=== PATIENT | male | born 1955 | race Caucasian/White ===

== ENCOUNTER → 2016-08-20 | Outpatient (CLI) | payer BC ==
[~2016-08-20] MED LIST: ACHD5005 PO; ALPR0.5T7 PO; CPR500T PO; CYCL10TA9 PO; ESCI20TA2 PO; GABA-488 PO; S-AD400T3 PO; TRAM50TA2 PO; ZOLP5TAB PO
--- OUTSIDE RECORDS SUMMARY | 2016-08-20 16:02 | XMS REPORT | Continuity of Care Document ---
Author Author [facility] Organization [facility] Address Unknown Phone Unavailable Care Team Providers Care Actuary Manager Name Role Phone ANNY POOL DO PCP Insurance Providers Payer Name Policy Number Subscriber Name Relationship [facility] [id number] Kelly Vance 18 Self / Same As Patient Advance Directives Directive Response Recorded Date/Time Advance Directives No 12/27/15 9:52am Health Care Power of Lesson Instructor No 12/27/15 9:52am Organ Donor Yes 12/27/15 9:52am Resuscitation Status Full Code 12/27/15 9:52am Problems No problem information available. Medications No known medications. Social History Social History Problem Response Recorded Date/Time Alcohol Use Occasionally Uses 12/27/2015 9:52am Recreational Drug Use No 12/27/2015 9:52am Recent Foreign Travel No 09/06/2012 1:35pm Recent Infectious Disease Exposure No 09/06/2012 1:35pm Hospitalization with Isolation Denies 09/07/2012 2:38pm Sexually Transmitted Disease No 12/27/2015 9:52am HIV/AIDS No 12/27/2015 9:52am Smoking Status Never a Smoker 12/27/2015 9:52am Query Response Start Date Stop Date Smoking Status Never a Smoker Hospital Discharge Instructions No hospital discharge instructions. Plan of Care Discharge Date 12/27/15 10:00am Prescriptions See Medication Section Functional Status No functional status results. Allergies, Adverse Reactions, Alerts No known allergies. Immunizations No immunization records. Vital Signs Acute Vital Signs Vital Response Date/Time Temperature (Fahrenheit) 98.4 degrees F (97.6 - 99.5) 12/06/2015 6:00am Temperature (Calculated Celsius) 36.07702 degrees C (36.4 - 37.5) 12/06/2015 6:00am Temperature Source Temporal 12/06/2015 6:00am Pulse Rate (adult) 85 bpm (60 - 90) 12/06/2015 6:00am Respiratory Rate 20 bpm (12 - 24) 12/06/2015 6:00am O2 Sat by Pulse Oximetry 97 % (88 - 100) 12/06/2015 6:00am Blood Pressure 132/85 mm Hg 12/06/2015 6:00am Blood Pressure Mean 101 mm Hg 12/06/2015 6:00am Pain Pain Intensity 8 12/06/2015 6:00am Height (Feet) 6 feet 12/27/2015 9:52am Height (Inches) 3.00 inches 12/27/2015 9:52am Height (Calculated Centimeters) 190.441116 cm 12/27/2015 9:52am Weight (Pounds) 247 pounds 12/27/2015 9:52am Weight (Ounces) 0.5 oz 12/27/2015 9:52am Weight (Calculated Grams) 147046.491 gm 12/27/2015 9:52am Weight (Calculated Kilograms) 112.207186 kilograms 12/27/2015 9:52am Calculated BMI 28.54 12/27/2015 9:52am Results Laboratory Results Test Name Result Units Flags Reference Collection Date/Time Result Date/ Time Comments White Blood Count 6.2 10^3/uL 4.3-11.0 12/06/2015 5:32am 12/06/2015 6: 40am Red Blood Count 4.52 10^6/uL 4.35-5.85 12/06/2015 5:32am 12/06/2015 6: 40am Hemoglobin 14.2 G/DL 13.3-17.7 12/06/2015 5:32am 12/06/2015 6:40am Hematocrit 41 % 40-54 12/06/2015 5:32am 12/06/2015 6:40am Mean Corpuscular Volume 90 FL 80-99 12/06/2015 5:12/06/2015 6: 40am Mean Corpuscular Hemoglobin 31 PG 25-34 12/06/2015 5:12/06/2015 6: 40am Mean Corpuscular Hemoglobin Concent 35 G/DL 32-36 12/06/2015 5: 6:40am Red Cell Distribution Width 13.7 % 10.0-14.5 12/06/2015 5:2015 6:40am Platelet Count 131 10^3/uL 130-400 12/06/2015 5:12/06/2015 6:40am Mean Platelet Volume 11.1 FL H 7.4-10.4 12/06/2015 5:12/06/2015 6: 40am Neutrophils (%) (Auto) 51 % 42-75 12/06/2015 5:12/06/2015 6:40am Lymphocytes (%) (Auto) 37 % 12-44 12/06/2015 5:12/06/2015 6:40am Monocytes (%) (Auto) 9 % 0-12 12/06/2015 5:12/06/2015 6:40am Eosinophils (%) (Auto) 2 % 0-10 12/06/2015 5:12/06/2015 6:40am Basophils (%) (Auto) 1 % 0-10 12/06/2015 5:12/06/2015 6:40am Neutrophils # (Auto) 3.2 X 10^3 1.8-7.8 12/06/2015 5:12/06/2015 6: 40am Lymphocytes # (Auto) 2.3 X 10^3 1.0-4.0 12/06/2015 5:12/06/2015 6: 40am Monocytes # (Auto) 0.5 X 10^3 0.0-1.0 12/06/2015 5:12/06/2015 6: 40am Eosinophils # (Auto) 0.2 10^3/uL 0.0-0.3 12/06/2015 5:12/06/2015 6 :40am Basophils # (Auto) 0.1 10^3/uL 0.0-0.1 12/06/2015 5:2016 6: 40am Neutrophils % (Manual) 86 % 12/04/2015 8:50pm 12/04/2015 9:26pm Band Neutrophils 4 % 12/04/2015 8:50pm 12/04/2015 9:26pm Lymphocytes % (Manual) 5 % 12/04/2015 8:50pm 12/04/2015 9:26pm Monocytes % (Manual) 5 % 12/04/2015 8:50pm 12/04/2015 9:26pm Eosinophils % (Manual) 0 % 12/04/2015 8:50pm 12/04/2015 9:26pm Basophils % (Manual) 0 % 12/04/2015 8:50pm 12/04/2015 9:26pm Blood Morphology Comment NORMAL 12/04/2015 8:50pm 12/04/2015 9: 26pm Urine Color LEONOR * 12/04/2015 8:50pm 12/04/2015 9:23pm Urine Clarity SLIGHTLY CLOUDY 12/04/2015 8:50pm 12/04/2015 9:23pm Urine pH 5 5-9 12/04/2015 8:50pm 12/04/2015 9:23pm Urine Specific Balko 1.025 * 1.016-1.022 12/04/2015 8:50pm 2015 9:23pm Urine Protein 2+ * NEGATIVE 12/04/2015 8:50pm 12/04/2015 9:23pm Urine Glucose (UA) NEGATIVE NEGATIVE 12/04/2015 8:50pm 12/04/2015 9: 23pm Urine RBC (Auto) 4+ * NEGATIVE 12/04/2015 8:50pm 12/04/2015 9:23pm Urine Ketones NEGATIVE NEGATIVE 12/04/2015 8:50pm 12/04/2015 9:23pm Urine Nitrite NEGATIVE NEGATIVE 12/04/2015 8:50pm 12/04/2015 9:23pm Urine Bilirubin NEGATIVE NEGATIVE 12/04/2015 8:50pm 12/04/2015 9: 23pm Urine Urobilinogen 1 MG/DL NORMAL 12/04/2015 8:50pm 12/04/2015 9:23pm Urine Leukocyte Esterase 1+ * NEGATIVE 12/04/2015 8:50pm 12/04/2015 9: 23pm Urine RBC 5-10 /HPF * 12/04/2015 8:50pm 12/04/2015 9:23pm Urine WBC 0-2 /HPF 12/04/2015 8:50pm 12/04/2015 9:23pm Urine Bacteria NONE /HPF 12/04/2015 8:50pm 12/04/2015 9:23pm Urine Crystals NONE /LPF 12/04/2015 8:50pm 12/04/2015 9:23pm Urine Casts PRESENT /LPF 12/04/2015 8:50pm 12/04/2015 9:23pm Urine Hyaline Casts >50 /[facility] * 12/04/2015 8:50pm 12/04/2015 9:23pm Urine Mucus NEGATIVE /[facility] 12/04/2015 8:50pm 12/04/2015 9:23pm Urine Culture Indicated NO 12/04/2015 8:50pm 12/04/2015 9:23pm Sodium Level 140 MMOL/L 135-145 12/06/2015 5:32am 12/06/2015 6:21am Potassium Level 4.4 MMOL/L 3.6-5.0 12/06/2015 5:32am 12/06/2015 6:21am Chloride Level 114 MMOL/L H 98-107 12/06/2015 5:32am 12/06/2015 6:21am Carbon Dioxide Level 20 MMOL/L L 21-32 12/06/2015 5:32am 12/06/2015 6: 21am Anion Gap 6 MMOL/L 5-14 12/06/2015 5:32am 12/06/2015 6:21am Blood Urea Nitrogen 12 MG/DL 7-18 12/06/2015 5:32am 12/06/2015 6:21am Creatinine 0.91 MG/DL 0.60-1.30 12/06/2015 5:32am 12/06/2015 6:21am BUN/Creatinine Ratio 13 12/06/2015 5:32am 12/06/2015 6:21am Estimat Glomerular Filtration Rate > 60 12/06/2015 5:32am 2015 6:21am GFR INTERPRETIVE DATA UNITS FOR ESTIMATED GFR (eGFR): mL/min/1.73 M2 REFERENCE RANGE FOR ESTIMATED GFR (eGFR) eGFR NORMAL eGFR >60 MODERATELY DECREASED eGFR 30-59 SEVERLY DECREASED eGFR 15-29 KIDNEY FAILURE <15 (OR DIALYSIS) Glucose Level 90 MG/DL 70-105 12/06/2015 5:32am 12/06/2015 6:21am Calcium Level 7.8 MG/DL L 8.5-10.1 12/06/2015 5:32am 12/06/2015 6:21am Total Bilirubin 0.6 MG/DL 0.1-1.0 12/06/2015 5:32am 12/06/2015 6:21am Alkaline Phosphatase 56 U/L 40-136 12/06/2015 5:32am 12/06/2015 6:21am Aspartate Amino Transf (AST/SGOT) 36 U/L H 5-34 12/06/2015 5:32am 2015 6:21am Alanine Aminotransferase (ALT/SGPT) 24 U/L 0-55 12/06/2015 5:32am 12/05 6:21am Total Creatine Kinase 827 U/L H 30-200 12/06/2015 5:32am 12/06/2015 6: 21am Total Protein 5.6 G/DL L 6.4-8.2 12/06/2015 5:32am 12/06/2015 6:21am Albumin 3.4 G/DL 3.2-4.5 12/06/2015 5:32am 12/06/2015 6:21am Procedures No known history of procedures. Encounters Encounter Location Arrival/Admit Date Discharge/Depart Date Attending Provider Departed Clinic [facility] 12/27/15 5:34am 12/27/15 10: 00am JAYDON LUCREO MD Discharged Inpatient [facility] 12/04/15 10:45pm 9:32am ANNY POOL DO
--- NOTE | 2016-08-20 16:28 | Diagnostic Imaging Report ---
INDICATION: Right leg swelling. Right leg venous Doppler study was performed in the routine fashion with color flow Doppler and waveform analysis. FINDINGS: The right common femoral vein, superficial femoral vein, popliteal vein and visualized portion of the tibial veins show normal compressibility and venous flow patterns. There is normal augmentation. IMPRESSION: No evidence of deep vein thrombosis of the major veins of the right leg. Dictated by: Dictated on workstation # [id number]
== END ==
LOC: RAD 15:58
PROVIDERS: ATTEND Nurse Practitioner
DX: R22.41 Localized swelling, mass and lump, right lower limb (principal); M79.604 Pain in right leg

== ENCOUNTER 2018-08-13 09:12 | Emergency (ER) | payer BC ==
[~2018-08-13] VITALS: Ht 185.4 cm; Wt 117.9 kg
--- OUTSIDE RECORDS SUMMARY | 2018-08-13 09:17 | XMS REPORT | Continuity of Care Document ---
Author Author [facility] Organization [facility] Address Unknown Phone Unavailable Allergies Active Description Code Type Severity Reaction Onset Reported/Identified Relationship to Patient Clinical Status Yes No Known Drug Allergies [id number] Drug Allergy Unknown N/A 12/27/2015 Medications There is no data. Problems Date Dx Coded Attending Type Code Diagnosis Diagnosed By 03/25/2012 Ot 592.1 CALCULUS OF URETER 03/25/2012 Ot 789.09 ABDOMINAL PAIN, OTHER SPECIFIED SITE 09/07/2012 Ot 721.1 CERV SPONDYL W MYELOPATH 11/25/2012 FITO RENE Ot 787.20 DYSPHAGIA, UNSPECIFIED 11/25/2012 FITO RENE Ot V45.89 POSTSURGICAL STATES NEC 11/25/2012 FITO RENE Ot V57.3 CARE INVOLVING SPEECH-LANGUAGE THERAPY 12/05/2015 ORENDER DO, ANNY S Ot L55.0 SUNBURN OF FIRST DEGREE 12/05/2015 ORENDER DO, ANNY S Ot M62.82 RHABDOMYOLYSIS 12/05/2015 ORENDER DO, ANNY S Ot N17.9 ACUTE KIDNEY FAILURE, UNSPECIFIED 12/06/2015 ORENDER DO, ANNY S Ot L55.0 SUNBURN OF FIRST DEGREE 12/06/2015 ORENDER DO, ANNY S Ot M62.82 RHABDOMYOLYSIS 12/06/2015 ORENDER DO, ANNY S Ot N17.9 ACUTE KIDNEY FAILURE, UNSPECIFIED 12/27/2015 JAZMINE BUENROSTRO, JAYDON Salazar Ot L98.9 DISORDER OF THE SKIN AND SUBCUTANEOUS TI 12/27/2015 JAZMINE BUENROSTRO, JAYDON Salazar Ot Z01.818 ENCOUNTER FOR OTHER PREPROCEDURAL EXAMIN 12/27/2015 JAZMINE BUENROSTRO, JAYDON Salazar Ot Z12.11 ENCOUNTER FOR SCREENING FOR MALIGNANT NE 12/28/2015 JAZMINE BUENROSTRO, JAYDON Salazar Ot L98.9 DISORDER OF THE SKIN AND SUBCUTANEOUS TI 12/28/2015 JAZMINE BUENROSTRO, JAYDON Salazar Ot Z01.818 ENCOUNTER FOR OTHER PREPROCEDURAL EXAMIN 12/28/2015 JAZMINE BUENROSTRO, JAYDON Salazar Ot Z12.11 ENCOUNTER FOR SCREENING FOR MALIGNANT NE 12/31/2015 Ot 723.0 CERVICAL SPINAL STENOSIS 12/31/2015 Ot V72.63 PRE- PROCEDURAL LABORATORY EXAMINATION 12/31/2015 Ot V74.8 SCREEN- BACTERIAL DIS NEC 12/31/2015 Ot 733.00 OSTEOPOROSIS NOS 12/31/2015 ROSANA RAGSDALE MD Ot 787.20 DYSPHAGIA, UNSPECIFIED 12/31/2015 JAZMINE BUENROSTRO, JAYDON Salazar Ot K63.5 POLYP OF COLON 12/31/2015 JAZMINE BUENROSTRO, JAYDON Salazar Ot L82.1 OTHER SEBORRHEIC KERATOSIS 12/31/2015 JAZMINE BUENROSTRO, JAYDON Salazar Ot Z11.2 ENCOUNTER FOR SCREENING FOR OTHER BACTER 12/31/2015 JAZMINE BUENROSTRO, JAYDON Salazar Ot Z12.11 ENCOUNTER FOR SCREENING FOR MALIGNANT NE 01/03/2016 JAZMINE BUENROSTRO, JAYDON Salazar Ot K63.5 POLYP OF COLON 01/03/2016 JAZMINE BUENROSTRO, JAYDON Salazar Ot L82.1 OTHER SEBORRHEIC KERATOSIS 01/03/2016 JAZMINE BUENROSTRO, JAYDON Salazar Ot Z11.2 ENCOUNTER FOR SCREENING FOR OTHER BACTER 01/03/2016 JAZMINE BUENROSTRO, JAYDON Salazar Ot Z12.11 ENCOUNTER FOR SCREENING FOR MALIGNANT NE 08/20/2016 Ot 723.0 CERVICAL SPINAL STENOSIS 08/20/2016 Ot V72.63 PRE- PROCEDURAL LABORATORY EXAMINATION 08/20/2016 Ot V74.8 SCREEN- BACTERIAL DIS NEC 08/20/2016 Ot 733.00 OSTEOPOROSIS NOS 08/20/2016 ROSANA RAGSDALE MD Ot 787.20 DYSPHAGIA, UNSPECIFIED 08/21/2016 COREY SEGURA APRN Ot M79.604 PAIN IN RIGHT LEG 08/21/2016 COREY SEGURA APRN Ot R22.41 LOCALIZED SWELLING, MASS AND LUMP, RIGHT 09/04/2016 COREY SEGURA APRN Ot M79.604 PAIN IN RIGHT LEG 09/04/2016 COREY SEGURA APRN Ot R22.41 LOCALIZED SWELLING, MASS AND LUMP, RIGHT Procedures Code Description Performed By Performed On 77.79 EXCISE BONE FOR GFT NEC 09/06/2012 80.99 EXCISION OF JOINT NEC 09/06/2012 81.02 OTH CERVICAL FUSION OF ANTERIOR COLUMN, 09/06/2012 81.63 FUSION/REFUS OF 4-8 VERTEBRAE 09/06/2012 84.51 INSERTION OF INTERBODY SPINAL FUSION DEV 09/06/2012 Results There is no data. Encounters ACCT No. Visit Date/Time Discharge Status Pt. Type Provider Facility Loc./Unit Complaint [id number] 08/20/2016 15:58:00 08/20/2016 23:59:59 CLS Outpatient COREY SEGURA APRN [facility] RAD RT LEG SWELLING AND PAIN [id number] 12/31/2015 12:05:00 12/31/2015 17:25:00 DIS Outpatient JAYDON LUCERO MD [facility] SDC LESIONS X2; SCREENING [id number] 12/27/2015 05:34:00 12/27/2015 10:00:00 DIS Outpatient JAYDON LUCERO MD [facility] PREOP LESIONS/SCREENING [id number] 12/04/2015 22:45:00 12/06/2015 09:32:00 DIS Inpatient ANNY STEIN DO [facility] 4TH RHABDOMYOLYSIS,ACUTE RENAL FAILURE [id number] 11/25/2012 09:49:00 11/25/2012 23:59:59 CLS Outpatient ROSANA RAGSDALE MD [facility] RAD DYSPHAGIA [id number] 11/09/2012 14:32:00 11/25/2012 13:01:00 DIS Outpatient FITO RENE [facility] REHAB DYSPHAGIA [id number] 08/13/2018 09:13:00 ACT Emergency SARAHY ABAD MD [facility] ER TRAUMA [id number] 09/17/2012 08:42:00 Document Registration [id number] 09/06/2012 07:45:00 Document Registration [id number] 09/02/2012 10:37:00 Document Registration [id number] 03/25/2012 01:17:00 Document Registration 12/20/18 06/01/2018 12:06:33 06/01/2018 23:59:59 CLS Outpatient Anny Stein
[2018-08-13 09:30] LABS: HEMOGLOBIN 15.8 G/DL (13.3-17.7); MEAN PLATELET VOLUME 10.3 FL (7.4-10.4); RED CELL DISTRIBUTION WIDTH 12.9 % (10.0-14.5); WHITE BLOOD COUNT 5.8 10^3/uL (4.3-11.0)
[2018-08-13] MEDS ORDERED: NS 100 ML (IVPB) BAG IV ONE (09:30)
[2018-08-13] MEDS ORDERED: RECEIVED CONTRAST (Hold Metformin) IV SCH (09:30)
[2018-08-13] MEDS ORDERED: IOHEXOL 350 MG/ML 100 ML (OMNIPAQUE 350) VIAL IV ONE (09:30)
[2018-08-13] MEDS ORDERED: ALPR0.5T7 (09:34)
--- NOTE | 2018-08-13 09:34 | ED Trauma-Multisystem ---
General Chief Complaint: Trauma EMS/Air Arrival Activat Stated Complaint: TRAUMA Nursing Triage Note: 0908 - SEE MARBIN FLOW SHEET. History of Present Illness Date Seen by Provider: Aug 13, 2018 Time Seen by Provider: 09:25 Initial Comments The patient is a 62-year-old white male who was brought by ambulance. He had been descending a ladder and the ladder collapsed under him. He rode the ladder down and landed on his back and struck the back of his head. He noted that there has been some bleeding there he had no loss of consciousness. He is alert and oriented and making small jokes. He is in a cervical collar. He reports no pain other than the occipital area of the head. Occurred: Just Prior to Arrival Pain/Injury Location: Head Method of Injury: Fall Associated Symptoms (Fall): Denies Symptoms Allergies and Home Medications Allergies Coded Allergies: No Known Drug Allergies (Unverified , 12/27/15) Home Medications Tramadol HCl 50 Mg Tablet, 50 MG PO Q12H PRN for PAIN Prescribed by: JAYDON LUCERO on 12/31/15 1532 Patient Home Medication List Home Medication List Reviewed: Yes Review of Systems Review of Systems Constitutional: see HPI Eyes: No Symptoms Reported Ears: No Symptoms Reported Nose: No Symptoms Reported Mouth: No Symptoms Reported Throat: No Symptoms to Report Respiratory: no symptoms reported Cardiovascular: No Symptoms Reported Gastrointestinal: no symptoms reported Musculoskeletal: no symptoms reported Skin: no symptoms reported Psychiatric/Neurological: No Symptoms Reported Past Acfzmto-Medgkn-Trrlil Hx Patient Social History Type Used: Cigarettes Former Smoker, Quit: Jun 22, 1995 Recent Foreign Travel: No Contact w/Someone Who Travel: No Recent Infectious Disease Expo: No Past Medical History Orthopedic Reproductive Disorders: No Sexually Transmitted Disease: No HIV/AIDS: No Kidney Stones Arthritis Tinnitis Loss of Vision: Bilateral Hearing Impairment: Denies Anxiety Adverse Reaction/Blood Tranf: No (N/A) Physical Exam Height, Weight, BMI Height: 6'1.00" Weight: 260lbs. 0.5oz. 117.947509lt; 28.12 BMI Method:Stated General Appearance: Mild Distress Head: Other (occipital hematoma on the left with blood in scalp hair) Eyes: Bilateral Eye Normal Inspection Ears, Nose, Throat: Hearing Grossly Normal Neck: Other (cervical collar) Cardiovascular: Regular Rate, Rhythm, No Edema, No Gallop, No JVD, No Murmur, Normal Peripheral Pulses Respiratory: Chest Non Tender, Lungs Clear, Normal Breath Sounds, No Accessory Muscle Use, No Respiratory Distress Extremity: Other (there was a scrape over the dorsum of the right foot consistent with his description of hanging up on a ladder rung) Neurologic/Psychiatric: Alert, Oriented x3, No Motor/Sensory Deficits, Normal Mood/Affect, occupational therapy supervisor II-XII Norm as Tested Lymphatic: No Adenopathy The patient was rolled to his left side and palpation performed along the vertebral column. No pain was elicited. Hatch Coma Score Best Eye Response (Marcia): (4) Open Spontaneously Best Verbal Response (Marcia): (5) Oriented Best Motor Response (Hatch): (6) Obeys Commands Marcia Total: 15 Progress/Results/Core Measures Results/Orders Lab Results Laboratory Tests Test 08/13/18 09:16 Range/Units White Blood Count 5.8 4.3-11.0 10^3/uL Red Blood Count 5.05 4.35-5.85 10^6/uL Hemoglobin 15.8 13.3-17.7 G/DL Hematocrit 45 40-54 % Mean Corpuscular Volume 89 80-99 FL Mean Corpuscular Hemoglobin 31 25-34 PG Mean Corpuscular Hemoglobin Concent 35 32-36 G/DL Red Cell Distribution Width 12.9 10.0-14.5 % Platelet Count 159 130-400 10^3/uL Mean Platelet Volume 10.3 7.4-10.4 FL Sodium Level 139 135-145 MMOL/L Potassium Level 3.8 3.6-5.0 MMOL/L Chloride Level 105 98-107 MMOL/L Carbon Dioxide Level 25 21-32 MMOL/L Anion Gap 9 5-14 MMOL/L Blood Urea Nitrogen 12 7-18 MG/DL Creatinine 1.14 0.60-1.30 MG/DL Estimat Glomerular Filtration Rate > 60 BUN/Creatinine Ratio 11 Glucose Level 115 H 70-105 MG/DL Calcium Level 8.9 8.5-10.1 MG/DL Total Bilirubin 0.6 0.1-1.0 MG/DL Direct Bilirubin 0.2 0.0-0.3 MG/DL Indirect Bilirubin 0.4 MG/DL Aspartate Amino Transf (AST/SGOT) 33 5-34 U/L Alanine Aminotransferase (ALT/SGPT) 31 0-55 U/L Alkaline Phosphatase 58 40-136 U/L Total Protein 6.7 6.4-8.2 GM/DL Albumin 4.0 3.2-4.5 GM/DL Serum Alcohol < 10 <10 MG/DL My Orders Orders - SARAHY ABAD MD Iohexol Injection (Omnipaque 350 Mg/Ml 1 (08/13/18 09:30) Contrast Received (Contrast Received) (08/13/18 09:30) Ns (Ivpb) (Sodium Chloride 0.9% Ivpb Bag (08/13/18 09:30) Ct Head/Cervical Spine Wo (08/13/18:23) Ct Chest W (08/13/18 09:23) Ct Thoracic/Lumbar Spine Wo (08/13/18 09:23) Cbc No Diff (08/13/18 09:16) Alcohol (08/13/18 09:16) Basic Metabolic Panel (08/13/18 09:16) Liver Panel (08/13/18:16) Type And Screen (08/13/18:16) Hydromorphone Injection (Dilaudid Inject (08/13/18 10:00) Medications Given in ED Current Medications Medications Dose Ordered Sig/Erik Route Start Time Stop Time Status Last Admin Dose Admin Hydromorphone HCl 0.5 mg Q4H PRN IV 08/13/18 10:00 08/13/18 10:00 0.5 MG Iohexol 75 ml ONCE ONCE IV 08/13/18 09:30 08/13/18 09:31 DC 08/13/18 09:36 75 ML Sodium Chloride 100 ml ONCE ONCE IV 08/13/18 09:30 08/13/18 09:31 DC 08/13/18 09:36 80 ML Departure Communication (Admissions) 1134. The patient was seen by Dr. Lucero in the emergency room. He concurred with my evaluation. Patient has a minor fracture at T4. He will have Dr. Cloud look at the CT scans remotely. The hematoma on the scalp was addressed and after cleaning with peroxide found to be more a stippled wound as if from Chat or rough concrete and not a laceration. Dr. Cloud returned a call after reviewing the films and found the patient satisfactory for discharge. He will want a follow-up at the [address] [place] [address] in about 2 weeks. Impression Primary Impression: fall from ladder Additional Impression: T4 vertebral fracture Disposition: HOME, SELF-CARE Condition: Stable/Unchanged Departure-Patient Inst. Referrals: ANNY POOL DO (PCP/Family) Primary Care Physician Patient Instructions: Concussion, Adult (DC) Add. Discharge Instructions: All discharge instructions reviewed with patient and/or family. Voiced understanding. Apply ice pack to back of head a couple of times this afternoon. Do not be surprised if in a few days YOU have a black and blue area below the hairline. Pain medicine as needed. Appointment to see Dr. Cloud in 2 weeks. Call [place] for appointment Return if a change in status particularly relative to mentation and alertness Scripts Hydrocodone Bit/Acetaminophen (LORTAB 7.5 MG TABLET) 1 Ea Tablet 1 EA PO 4 times daily PRN for PAIN-MODERATE, #20 TAB Prov: SARAHY ABAD MD 08/13/18 SARAHY ABAD MD Aug 13, 2018 09:34
--- NOTE | 2018-08-13 09:49 | NUR ---
PT BACK IN ROOM. FAMILY TAKEN TO ROOM. NOTIFIED PT WOULD LIKE SOMETHING FOR PAIN.
[2018-08-13 09:50] LABS: ALANINE AMINOTRANSFERASE 31 U/L (0-55); ALKALINE PHOSPHATASE 58 U/L (40-136); BILIRUBIN,DIRECT 0.2 MG/DL (0.0-0.3); BILIRUBIN,INDIRECT 0.4 MG/DL; BILIRUBIN,TOTAL 0.6 MG/DL (0.1-1.0); BUN/CREATININE RATIO 11; CALCIUM 8.9 MG/DL (8.5-10.1); CARBON DIOXIDE 25 MMOL/L (21-32); CHLORIDE 105 MMOL/L (98-107); CREATININE SERUM 1.14 MG/DL (0.60-1.30); GFR ESTIMATED > 60; GLUCOSE 115 MG/DL (70-105); POTASSIUM 3.8 MMOL/L (3.6-5.0); SODIUM 139 MMOL/L (135-145); TOTAL PROTEIN 6.7 GM/DL (6.4-8.2)
--- NOTE | 2018-08-13 09:50 | Diagnostic Imaging Report ---
PROCEDURE: CT head and CT cervical spine without contrast. TECHNIQUE: Multiple contiguous axial images were obtained through the brain and cervical spine without the use of intravenous contrast. Sagittal and coronal reformations through the cervical spine were then performed. INDICATION: Fall 10 feet off a ladder complaining of neck pain. CT head: Soft tissue swelling in the left posterior parietal-occipital scalp is noted. Ventricles and sulci are within normal limits. No sulcal effacement or midline shift is identified. No acute intra-axial or extra-axial hemorrhage is detected. Cisterns are patent. Visualized paranasal sinuses are clear. No calvarial fracture is seen. IMPRESSION: Left posterior parietal scalp swelling. No acute intracranial process is detected. CT cervical spine: Postsurgical changes of cervical spine are noted. There has been corpectomy with interposition graft C4 through C7 transfixed by an anterior plate and numerous screws. Hardware appears to be intact. No hardware fracture or loosening is seen. Cervical spine is without evidence of acute bony abnormality. Prevertebral tissues are unremarkable. Odontoid appears to be intact. There is a lucency through the left transverse process of T2, however, this appears to be somewhat corticated and appears chronic. No acute fractures are seen. IMPRESSION: Extensive cervical spine surgery with corpectomy and interposition graft and fusion C4 through T1. No complicating features are seen. No acute fracture is identified. Dictated by: Dictated on workstation # [id number]
--- NOTE | 2018-08-13 09:54 | Diagnostic Imaging Report ---
PROCEDURE: CT chest with contrast only. TECHNIQUE: Multiple contiguous axial images were obtained through the chest after administration of intravenous contrast. INDICATION: Chest trauma, fall from ladder Lungs are clear. There are no effusions or pneumothoraces. Heart and mediastinum are normal. There are no displaced rib fractures seen. IMPRESSION: Negative CT chest. Dictated by: Dictated on workstation # [id number]
[2018-08-13] MEDS ORDERED: HYDROmorphone 2 MG/ML VIAL (DILAUDID) IV PRN (10:00)
--- NOTE | 2018-08-13 10:00 | Diagnostic Imaging Report ---
INDICATION: Fell 10 feet off a ladder. Axial imaging through the thoracic and lumbar spine was performed without contrast. Sagittal and coronal reformations were also performed. CT thoracic: There is normal thoracic kyphotic curvature. The vertebral body heights are maintained. There does appear to be an acute appearing fracture involving the anterior superior corner of the T4 vertebral body. There is some lucency extending to the mid to posterior aspect of the T4 vertebral body on the left side on axial images. No retropulsion is seen. Posterior elements are unremarkable. All other thoracic vertebrae are unremarkable. Bony canal is patent. Paraspinous tissues are unremarkable. IMPRESSION: Findings suggestive of fracture involving the superior endplate and anterosuperior corner of the T4 vertebral body without evidence of retropulsion. No other definite thoracic fractures are seen. CT lumbar spine: There appears to be a rudimentary rib on the left at L1 level articulating with the transverse process. Vertebral body heights are maintained. No fracture is seen. Significant multilevel degenerative disc disease of variable disc space narrowing and marginal spurring. There appears to be spinal stenosis L3-L4 level as well as L4-L5 level. Paraspinous tissues are unremarkable. IMPRESSION: Lumbar spondylosis. No acute bony abnormality is detected. Dictated by: Dictated on workstation # [id number]
--- NOTE | 2018-08-13 10:21 | NUR ---
RESTING IN BED ET DENIES NEEDS AT THIS TIME.
--- NOTE | 2018-08-13 10:59 | NUR ---
RESTING IN BED ET DENIES NEEDS AT THIS TIME.
--- NOTE | 2018-08-13 11:01 | NUR ---
DR LUCERO HERE TO SEE PT.
--- NOTE | 2018-08-13 11:31 | NUR ---
DR ABAD NOTFIED THAT DR LUCERO WOULD LIKE HIM TO HAVE ABX, PAIN MEDS, AND AN APPT WITH DR SEGURA FOR 2 WEEKS AT DISCHARGE. NOTIFIED FAMILY WOULD LIKE A SCRIPT OF CARL FOR TAKE HOME.
[2018-08-13] MEDS ORDERED: HYDR-34 PO (11:38)
--- NOTE | 2018-08-13 11:40 | NUR ---
DR ABAD REPORTS AREA ON THE BACK OF HEAD IS NOT A LACERATION ET IS AN ABRSION FROM HITTING GRAVEL.
[2018-08-13] MEDS ORDERED: TETANUS,DIPTH,PERTUSS P/F (BOOSTRIX) 0.5 ML VIAL IM ONE (11:45)
[2018-08-13] MEDS ORDERED: LIDOCAINE 1% INJ 20 ML 20 ML VIAL INJ ONE (11:45)
[2018-08-13] MEDS ORDERED: cefTRIAXone 1,000 MG IV (ROCEPHIN) VIAL ONE (11:55)
[2018-08-13] MEDS ORDERED: WATER (STERILE) FOR INJECTION 10 ML ONE (11:56)
--- NOTE | 2018-08-13 12:00 | NUR ---
PT UP AMBULATED TO THE BATHROOM WITHOUT DIFFICULTY.
[2018-08-13] MEDS ORDERED: cefTRIAXone FOR IV USE 1,000 MG in WATER (STERILE) FOR INJECTION 10 ML IV ONE (12:02)
--- NOTE | 2018-08-13 12:04 | NUR ---
X1 IV DC'D BY FOUR H AGENT.
--- NOTE | 2018-08-13 12:07 | NUR ---
DR BROOKS IN ROOM TALKING TO PT.
--- NOTE | 2018-08-13 12:15 | NUR ---
WHILE TALKING TO PT ABOUT HIS DISCHARGE PT'S BP IS 111/75 WHICH IS LOWER THEN IT HAS BEEN. PT LAUGHING ET STATES "WELL THATS GOOD"
--- NOTE | 2018-08-13 12:22 | NUR ---
CLINICAL TRIAL ASSOCIATE REPORT PT'S FACE IS FLUSHED AND HE IS LIGHT HEADED. BP 105/82. TALKED WITH DR ABAD CONCERNING SYMPTOMS ET SUDDEN DECREASE IN BP.
--- NOTE | 2018-08-13 12:27 | NUR ---
STOOD PT UP TO CHECK BP WHILE STANDING. WITHIN A MINUTE PT NEEDED TO SIT DOWN DUE TO DIZZINESS. AFTER SITTING BP 74/46. PT SITTING IN CHAIR ET PATIENT EXPERIENCE COORDINATOR AND FAMILY IN ROOM WITH PT ET I NOTIFIED DR BROOKS OF CHANGE WHO CAME TO ROOM.
[2018-08-13] MEDS ORDERED: NS IV 1000 ML 1,000 ML ONE (12:29)
--- NOTE | 2018-08-13 12:30 | NUR ---
CECILIA TALKING TO PT.
--- NOTE | 2018-08-13 12:43 | NUR ---
NS STARTED ON PT WIDE OPEN. COOL CLOTHS PLACED ON PT.
[2018-08-13 13:10] VITALS: BP_SYST 126; BP_SYST 142; BP_SYST 144; BP_DIAS 83; BP_DIAS 93; BP_DIAS 95
--- NOTE | 2018-08-13 13:12 | NUR ---
PT STATES HE FEELS OK WHEN STANDING. PT COLOR REMAINED PINK ET NOT DIZZY. DR BROOKS NOTIFIED WHO CAME IN ROOM TO TALK TO PT.
[2018-08-13] MEDS ORDERED: ONDA4TAB11 PO (13:24)
[2018-08-13 13:28] VITALS: BP 126/95
[2018-08-13] MEDS ORDERED: NS IV 1000 ML 1,000 ML IV ONE (13:28)
--- NOTE | 2018-08-13 15:14 | Consultation ---
History of Present Illness History of Present Illness Patient Consulted On(keyla/time) 08/13/18 15:10 Date Seen by Provider: Aug 13, 2018 Time Seen by Provider: 10:30 Reason for Visit: Fall from a ladder History of Present Illness This gentleman, fell off a ladder while inspecting the roof this morning and was brought emergency room for evaluation. He reported pain over the interscapular region along the midline, over spine. Allergies and Home Medications Allergies Coded Allergies: No Known Drug Allergies (Unverified , 12/27/15) Home Medications Hydrocodone Bit/Acetaminophen 1 Ea Tablet, 1 EA PO 4 times daily PRN for PAIN- MODERATE Prescribed by: SARAHY ABAD on 08/13/18 1138 Ondansetron 4 Mg Tab.rapdis, 4 MG PO Q6H PRN for NAUSEA/VOMITING Prescribed by: CINDY BROOKS on 08/13/18 1324 Tramadol HCl 50 Mg Tablet, 50 MG PO Q12H PRN for PAIN Prescribed by: JAYDON LUCERO on 12/31/15 1532 Patient Home Medication List Home Medication List Reviewed: Yes Past Txurcrw-Vtvhso-Kzherh Hx Patient Social History Alcohol Use: Occasionally Uses Recreational Drug Use: No Smoking Status: Never a Smoker Type Used: Cigarettes Former Smoker, Quit: Jun 22, 1995 Recent Foreign Travel: No Contact w/Someone Who Travel: No Recent Infectious Disease Expo: No Past Medical History Surgeries: Yes (KNEE SCOPE, SINUS SX, NECK SX) Orthopedic Respiratory: No Cardiac: No Neurological: No Reproductive Disorders: No Sexually Transmitted Disease: No HIV/AIDS: No Kidney Stones Gastrointestinal: No Musculoskeletal: Yes (CERVICAL STENOSIS) Arthritis Endocrine: No Tinnitis Loss of Vision: Bilateral Hearing Impairment: Denies Cancer: No Psychosocial: Yes Anxiety Integumentary: No Blood Disorders: No Adverse Reaction/Blood Tranf: No (N/A) Review of Systems-General Constitutional: see HPI EENTM: no symptoms reported Respiratory: no symptoms reported Cardiovascular: no symptoms reported Gastrointestinal: no symptoms reported Genitourinary: no symptoms reported Musculoskeletal: see HPI Skin: see HPI Psychiatric/Neurological: No Symptoms Reported Physical Exam-General Problems Physical Exam Vital Signs Vital Signs - First Documented 08/13/18 08/13/18 13:10 13:28 Pulse 77 81 88 Resp 16 B/P (MAP) 144/95 (111) 142/93 (109) 126/83 (97) Pulse Ox 97 O2 Delivery Room Air Capillary Refill : General Appearance: mild distress HEENT: other Neck: non-tender, supple Respiratory: lungs clear Cardiovascular: regular rate, rhythm Gastrointestinal: non tender, soft Back: vertebral tenderness Extremities: other Neurologic/Psychiatric: alert, oriented x 3 Comments 2 cm laceration over the occipital region of the scalp with no active bleeding. Tenderness over the interscapular region overlying T4 vertebra. Abrasion over the dorsal aspect of both feet. Surgical scar along the anterior border of the right sternomastoid muscle, resulting from cervical spine fusion. Assessment/Plan Assessment/Plan Admission Diagnosis/Plan Gentleman with a nondisplaced chip fracture of the T4 vertebra by CT scan. Previous surgery to the C-spine with no acute fracture. CT of the chest and abdomen upper abdomen negative. Discussed with Dr. Daron Cloud, the orthopedic surgeon on-call, who confirmed reviewing the images and suggested that the patient be discharged with pain management and arrangements for a follow-up with him in 2 weeks Admission Status: Other JAYDON LUCERO MD Aug 13, 2018 15:14
[2018-08-14] MEDS ORDERED: cefTRIAXone 1,000 MG/2.86 ml vial (IM ONLY) IM SCH (09:00)
== END 2018-08-13 13:28 | disposition home or self-care (01) ==
LOC: EDUNIT# 09:12 → ER 09:13
DX: S22.048A Other fracture of fourth thoracic vertebra, initial encounter for closed fracture (principal); R51 Headache; F41.9 Anxiety disorder, unspecified; R40.2142 Coma scale, eyes open, spontaneous, at arrival to emergency department; R40.2252 Coma scale, best verbal response, oriented, at arrival to emergency department; R40.2362 Coma scale, best motor response, obeys commands, at arrival to emergency department; Z87.891 Personal history of nicotine dependence; Z87.442 Personal history of urinary calculi; W11.XXXA Fall on and from ladder, initial encounter
CPT/HCPCS: 36415; 70450; 71260; 72125; 72128; 72131; 80048; 80076; 80320; 85027; 86850; 86900; 86901; 90471; 90715; 96365; 96375

== ENCOUNTER → 2018-09-28 | Outpatient (CLI) | payer BC ==
[~2018-09-28] MED LIST changes: +ALPR0.5T7; +HYDR-34 PO; +ONDA4TAB11 PO
--- NOTE | 2018-09-28 12:32 | Diagnostic Imaging Report ---
Right foot 11:48 a.m. INDICATION: Injury on 08/13/2018. Foot Pain. FINDINGS: Three views were obtained. There are no prior studies available for comparison. There is no fracture, dislocation or acute bony abnormality evident. The Lisfranc joint is fairly well-maintained. There is at least moderate degenerative disease of the PIP and DIP joints of the digits. The soft tissues are unremarkable. There is no radiopaque foreign body noted. IMPRESSION: There is no evidence for an acute bony abnormality. Dictated by: Dictated on workstation # [id number]
== END ==
LOC: RAD 11:27
PROVIDERS: ATTEND Nurse Practitioner Family
DX: M79.671 Pain in right foot (principal)
CPT/HCPCS: 73630

== ENCOUNTER → 2021-03-12 | Outpatient (CLI) | payer BC ==
[~2021-03-12] MED LIST changes: -TRAM50TA2 PO; +TRM50T PO
== END ==
LOC: CARD 09:15
PROVIDERS: ATTEND Family Medicine
DX: I49.9 Cardiac arrhythmia, unspecified (principal)
CPT/HCPCS: 93005

== ENCOUNTER 2021-05-27 09:07 | Outpatient (RCR) | payer BC | END 2021-06-21 | disposition home or self-care (01) | LOC: ONC 09:07 | PROVIDERS: ATTEND Radiology Radiation Oncology | DX: C61 Malignant neoplasm of prostate (principal); E78.00 Pure hypercholesterolemia, unspecified; F41.9 Anxiety disorder, unspecified | CPT/HCPCS: 99204 ==